=== PATIENT | female | born 1950 | race Caucasian/White ===

== ENCOUNTER 2024-11-30 13:07 | Emergency (ER) | payer MEDICARE, SELFPAY ==
--- NOTE | 2024-11-30 13:15 | DI.RAD_ITS ---
Exam(s) XR SHOULDER RT COMPLETE 2+V EXAM: XR SHOULDER RT COMPLETE 2+V CLINICAL HISTORY: R shoulder pain x 4 months, limited ROM. TECHNIQUE: 2D digital imaging was performed of the right shoulder. Six images were obtained. AP, Grashey, Y-view and axillary views were obtained. COMPARISON: No exams were available for comparison FINDINGS: BONES: No acute fracture is present. No bony destructive lesion is seen. JOINTS: No dislocation present. There are mild degenerative changes of the acromioclavicular joint. The glenohumeral joint is well maintained. SOFT TISSUE: There is calcific tendinitis present. IMPRESSION: 1. There is no acute fracture or dislocation. 2. Mild degenerative changes seen around the shoulder. DATA REPOSITORY: RADIATION DOSE DELIVERED:
[2024-11-30 13:16] VITALS: BP 181/101; PULSE 90; RESP 20; TEMP 36.7; O2SAT 98
--- NOTE | 2024-11-30 13:31 | W.ED.GENAD ---
Discharge Plan Disposition Patient Disposition: Home Discharge Details Clinical Impression: Injury of right shoulder Primary Care Provider: None,None ED Provider: Meggan Samaniego Discharge Instructions Instructions: Shoulder Pain ED Additional Instructions: I encourage you to call your primary care provider's office first thing in the morning to see if you can be reassigned to another provider and to schedule follow-up appointment. I have attempted to put in a referral to physical therapy at [facility] in [place]. I recommend that you call them to schedule an appointment ([phone]); if a primary care referral is required, I recommend following up with your PCPs office to obtain this. Your x-ray did not show any bony abnormalities, however there are degenerative changes that likely reflect arthritis. You may use Tylenol 650 mg every 6 hours as needed for discomfort. Voltaren gel available [id number] may also be helpful. May also find some relief with capsaicin creams and gentle massage/stretching. Return to emergency care if you develop new redness/swelling to your shoulder, fevers associated with shoulder pain, numbness to your arm, or if you are very worried and need to be rechecked again immediately Discharge Data Discharge Date/Time-TO BE ENTERED AT DEPARTURE: 11/30/24 15:18 HPI General Date/Time Provider Initiated Documentation: 11/30/24 13:16. HPI Narrative: Jennifer is a 73-year-old female who presents to the emergency department today for evaluation of chronic right shoulder pain. Fell on [facility] floor in 07/2024. Had an x-ray performed at that time, x-ray showed no abnormalities. She reports that she has not had this evaluated by primary care, says that her primary care recently left the practice and she has not been reassigned. She reports that she is comfortable at rest, but experiences painwith shoulder movement, especially lifting and rotating. Denies associated fevers, chills, hand numbness, joint swelling, color change to extremities, neck pain, other arm injuries. Hand and elbow function normally. Unable to lift arm beyond a certain point or scratch shoulder. No current primary care physician. General Stated Complaint: Orthopedic SHARATH: 4 Exam Narrative Exam Narrative: General Appearance: Normal. Patient is alert and oriented, no acute distress Vital signs: Hypertension noted, no fever, tachycardia or tachypnea Neck: No c-spine tenderness/stepoffs/deformities. Lymphatic: No enlarged axillary lymph nodes. Back, Musculoskeletal: No obvious deformity. Limited shoulder ROM, pain with lifting and rotating. Shoulders able to flex to approximately 70 degrees. Unable to perform empty can test or Apley scratch test due to limited range of motion. No joint swelling, erythema, or tenderness to palpation. Normal pulses bilaterally, no color change to extremity. Psychiatric: Normal. Course Vital Signs Vital signs: Vital Signs Temperature 36.7 C 11/30/24 13:16 Pulse 90 11/30/24 13:16 Respiratory Rate 20 11/30/24 13:16 Blood Pressure 181/101 H 11/30/24 13:16 Pulse Oximetry 98 11/30/24 13:16 Temperature 36.7 C 11/30/24 13:16 Temperature Source Oral 11/30/24 13:16 Pulse 90 11/30/24 13:16 Respiratory Rate 20 11/30/24 13:16 Blood Pressure 181/101 H 11/30/24 13:16 Blood Pressure Position Sitting 11/30/24 13:16 Pulse Oximetry 98 11/30/24 13:16 Oxygen Delivery Method Room Air 11/30/24 13:16 Oxygen Flow Rate 0 11/30/24 13:16 Pain Level 8 11/30/24 13:22 Medical Decision Making Initial Assessment: 73-year-old female with shoulder pain post-fall in July. Differential Diagnosis includes but is not limited to: Osteoarthritis, bone spurs, labral tear, frozen shoulder, meniscal injury, rotator cuff injury, other soft tissue/muscular injury. History and presentation not consistent with serious complications such as septic joint, dislocation, or neurovascular compromise. ED Course: - Comprehensive exam conducted. - No enlarged lymph nodes, neck pain, hand numbness, fever, or chills. - Ice pack provided. X-rays performed of shoulder to rule out bony abnormality; no acute abnormalities noted Final Assessment: Comprehensive exam conducted. No enlarged lymph nodes, neck pain, or hand numbness. Ice pack provided. Clinical Impression: - Right shoulder pain Disposition: - Referral to physical therapy provided - Establish care with primary care provider in [place], call clinic for reassignment to a new provider. - Reviewed discharge instructions with patient, including symptomatic management, importance of follow-up with PT, and red flags indicating need for return to emergency care Patient consented to the use of [facility]ULINO Imaging Data Radiologic Study: Radiologist's impression: Exam(s) XR SHOULDER RT COMPLETE 2+V EXAM: XR SHOULDER RT COMPLETE 2+V CLINICAL HISTORY: R shoulder pain x 4 months, limited ROM. TECHNIQUE: 2D digital imaging was performed of the right shoulder. Six images were obtained. AP, Grashey, Y-view and axillary views were obtained. COMPARISON: No exams were available for comparison FINDINGS: BONES: No acute fracture is present. No bony destructive lesion is seen. JOINTS: No dislocation present. There are mild degenerative changes of the acromioclavicular joint. The glenohumeral joint is well maintained. SOFT TISSUE: There is calcific tendinitis present. IMPRESSION: 1. There is no acute fracture or dislocation. 2. Mild degenerative changes seen around the shoulde PFSH All Active Problems (Updated 11/30/24 @ 14:45 by Meggan Hansen) Injury of right shoulder (Acute) Social History Smoking/Tobacco Use Status: Never Smoking risk assessment performed?: Yes Alcohol Intake: current Drug use: Never Substance use type: does not use Housing: house
[2024-11-30 14:21] VITALS: BP 136/97
== END 2024-11-30 15:18 | disposition home or self-care (01) ==
LOC: ER 14:57
PROVIDERS: Emergency Provider Nurse Practitioner Family
DX: M25.511 Pain in right shoulder (principal); G89.29 Other chronic pain
CPT/HCPCS: 99283; 73030